=== PATIENT | female | born 1975 | race Two or more races ===

== ENCOUNTER 2019-09-22 04:51 | Emergency (ER) | payer SELFPAY ==
[~2019-09-22] VITALS: Ht 160 cm; Wt 67.0 kg
--- NOTE | 2019-09-22 05:37 | NUR ---
PT ABLE TO AMBULATE TO RESTROOM AND BACK INTO BED WITH STEADY GAIT.
[2019-09-22 06:08] VITALS: BP 116/74
== END 2019-09-22 06:10 | disposition home or self-care (01) ==
LOC: ED 05:50
DX: R41.82 Altered mental status, unspecified (principal); R26.2 Difficulty in walking, not elsewhere classified
CPT/HCPCS: 99284